=== PATIENT | female | born 1945 | race Caucasian/White ===

== ENCOUNTER 2018-06-13 08:03 | Day surgery (SDC) | payer MEDICARE ==
--- NOTE | 2018-06-12 21:34 | Pre-Procedure Note/Attestation ---
Pre-Procedure Note/Attestation Complete Prior to Procedure Planned Procedure: left - Removal of cataract and placement of intraocular lens , left eye Procedure Narrative: Removal of cataract and placement of intraocular lens, left eye Indications for Procedure Pre-Operative Diagnosis: Cataract, combined, left eye Attestation I attest that I discussed the nature of the procedure; its benefits; risks and complications; and alternatives (and the risks and benefits of such alternatives ), prior to the procedure, with the patient (or the patient's legal outbound sales representative). I attest that, if there was a reasonable possibility of needing a blood transfusion, the patient (or the patient's legal outbound sales representative) was given the [place] [employer] [facility] [employer] [facility] standardized written summary, pursuant to the [place] Blood Safety Act ([place] Health and Safety Code # 1645, as amended). I attest that I re-evaluated the patient just prior to the surgery and that there has been no change in the patient's H&P, except as documented below: Albert Francisco MD Jun 12, 2018 21:34
[~2018-06-13] VITALS: Ht 157.5 cm; Wt 61.2 kg
[2018-06-13] VITALS (8 sets, daily range): BP systolic 105–116; BP diastolic 56–72
[~2018-06-13 08:03] MED LIST: Pred Forte 1% Opth Susp 1ml LEFT EYE ONE; Pred Forte 1% Opth Susp 1ml LEFT EYE SCH
[2018-06-13] MEDS ORDERED: EPINEPHrine 1mg/1ml Amp ONE ×2 (08:32→08:35)
[2018-06-13] MEDS ORDERED: Lidocaine 4% Amp ONE (08:32)
[2018-06-13] MEDS ORDERED: Pred Forte 1% Opth Susp 1ml ONE (08:33)
[2018-06-13] MEDS ORDERED: Dexamethasone 4mg/ml vial ONE (08:33)
[2018-06-13] MEDS ORDERED: Carbachol 0.01% Op Soln 1.5ml vial ONE (08:33)
[2018-06-13] MEDS ORDERED: Fluorescein Strips ONE (08:33)
[2018-06-13] MEDS ORDERED: Maxitrol Opth Oint 3.5gm ONE (08:33)
[2018-06-13] MEDS ORDERED: Timolol 0.5% Op Soln 2.5ml ONE (08:33)
[2018-06-13] MEDS ORDERED: Acetylcholine Injection (OR) ONE (08:34)
[2018-06-13] MEDS ORDERED: BSS 500ml btl ONE (08:34)
[2018-06-13] MEDS ORDERED: Povidone-Iodine 5% opth solution ONE (08:34)
[2018-06-13] MEDS ORDERED: Bupivacaine 0.75% 30ml vial INJ ONE (08:34)
[2018-06-13] MEDS ORDERED: BSS 15ml BTL ONE (08:34)
[2018-06-13] MEDS ORDERED: Lidocaine 1% MPF 10mg/ml 5ml ONE (08:35)
[2018-06-13] MEDS: Cyclopentolate 1% Opth Sol 2ml LEFT EYE SCH ×3 (08:38→09:17)
[2018-06-13] MEDS: Phenylephrine 10% Opth Soln 5ml LEFT EYE SCH ×3 (08:38→09:17)
[2018-06-13] MEDS ORDERED: Sodium Hyaluronate 10 mg/ml 0.85ml ONE ×2 (08:39→11:21)
[2018-06-13] MEDS: Akten 3.5% 1ml Btl LEFT EYE SCH ×3 (08:39→09:17)
[2018-06-13] MEDS: Vigamox Opth Soln 3ml LEFT EYE SCH ×3 (08:39→09:17)
[2018-06-13] MEDS ORDERED: Tetracaine 0.5% Opth 4ml Soln ONE (08:39)
[2018-06-13] MEDS ORDERED: Tropicamide 1% Opth 15ml Soln ONE (09:00)
[2018-06-13] MEDS: Tropicamide 1% Opth 15ml Soln LEFT EYE SCH ×3 (09:01→09:17)
[2018-06-13] MEDS ORDERED: MORPHINE SULFAT30 M9 PO (09:09)
[2018-06-13] MEDS ORDERED: OXYCODONE IR15 MG ORAL (09:09)
[2018-06-13] MEDS ORDERED: fentaNYL 100 mcg/2 mL IV ONE (09:22)
[2018-06-13] MEDS ORDERED: Midazolam 2mg/2ml Inj ONE (09:22)
[2018-06-13] MEDS ORDERED: Propofol 200mg/20ml IV ONE (09:25)
[2018-06-13] MEDS ORDERED: LR 1000ml ONE (10:00)
[2018-06-13] MEDS ORDERED: NS Irrig 1000ml ONE (10:00)
[2018-06-13] MEDS ORDERED: Sterile Water Irrig 1000ml IRRIG ONE (10:00)
[2018-06-13] MEDS ORDERED: LR 1000ml 1,000 ML IVLG SCH (10:01)
--- NOTE | 2018-06-13 10:01 | Anethesia Preoperative Eval ---
Anesthesia Pre-op PMH/ROS General Date of Evaluation: Jun 13, 2018 Time of Evaluation: 09:57 Anesthesiologist: Rodrick ASA Score: ASA 2 Mallampati Score Class I : Soft palate, uvula, fauces, pillars visible Class II: Soft palate, uvula, fauces visible Class III: Soft palate, base of uvula visible Class IV: Only hard plate visible Mallampati Classification: Class II Surgeon: Nolan Diagnosis: L eye cataract Surgical Procedure: L eye cataract extraction Anesthesia History: none Social History: current smoker Family History: no anesthesia problems Allergies: Coded Allergies: No Known Allergies (Unverified , 06/12/18) Medications: see eMAR Past Medical History Cardiovascular: Denies: HTN, CAD, [place], valve dz, arrhythmia, other Pulmonary: Reports: asthma - mild; Denies: COPD, BREANN, other Gastrointestinal/Genitourinary: Reports: GERD; Denies: CRI, ESRD, other Neurologic/Psychiatric: Reports: depression/anxiety, other - chronic pain on significant dose of opioids ; Denies: dementia, CVA, TIA Endocrine: Reports: hypothyroidism; Denies: DM, steroids, other HEENT: Reports: cataract (L), cataract (R) Hematology/Immune: Denies: anemia, DVT, bleeding disorder, other Musculoskeletal/Integumentary: 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 Exam Physician Exam Last Vital Signs Date Time Temp Pulse Resp B/P (MAP) Pulse Ox O2 Delivery O2 Flow Rate FiO2 06/13/18 09:10 Room Air 06/13/18 09:02 98.8 69 18 110/70 (83) 95 98.8 Constitutional: NAD Neurologic: CN 2-12 intact Cardiovascular: RRR, no M/R/G Respiratory: CTA Gastrointestinal: S/NT/ND Airway Exam Mallampati Score: Class II MO: limited Neck: stiff ROM: limited Teeth: intact Dentures: no upper, no lower Anesthesia Pre-op A/P Labs see chart Studies Pre-op Studies: EKG - SR Risk Assessment & Plan Assessment: ASA 2 Plan: MAC Status Change Before Surgery: No Pre-Antibiotics Drug: none Yang Mensah MD Jun 13, 2018 10:01
[2018-06-13] MEDS ORDERED: fentaNYL 100 mcg/2 mL IV PRN (10:15)
--- NOTE | 2018-06-13 11:23 | Discharge Instructions ---
Discharge Instructions Discharge Instructions Follow Up Orders Keep shield on at all times except to place eye gtts Continue preop eye drops followup tomorrow in Dr Francisco's office at 10:00 Return to Work/School on: Jun 13, 2018 For Congestive Heart Failure Reminder Report to your physician any weight gain of 5 pounds or more in one week. Albert Francisco MD Jun 13, 2018 11:23
--- NOTE | 2018-06-13 11:26 | Brief Operative Note ---
Immediate Post Operative Note Operative Note Pre-op Diagnosis: Cataract, combined, left eye Procedure: phaco pc iol, OS Post-op Diagnosis: same as pre-op Surgeon: Jair Francisco MD MS Respiratory Therapy Assistant: none Anesthesiologist: Dr Mensah Anesthesia: local, MAC Specimen: none Complications: none Condition: stable Fluids: see chart Implant(s) used?: Yes - zcb00 17.0 Albert Francisco MD Jun 13, 2018 11:26
--- NOTE | 2018-06-13 11:28 | Immediate Post-Op Evaluation ---
Immediate Post-Op Evalulation Immediate Post-Op Evalulation Procedure: L eye cataract extraction with IOL Date of Evaluation: Jun 13, 2018 Time of Evaluation: 11:27 IV Fluids: 400 Blood Products: 116 Estimated Blood Loss: 68 Urinary Output: 76 Blood Pressure Systolic: 116 Blood Pressure Diastolic: 68 Pulse Rate: 72 Respiratory Rate: 22 O2 Sat by Pulse Oximetry: 96 Temperature (Fahrenheit): 97.6 Pain Score (1-10): 1 Nausea: No Vomiting: No Complications none Patient Status: awake, patent, none Hydration Status: adequate Yang Mensah MD Jun 13, 2018 11:28
--- NOTE | 2018-06-13 12:11 | 48 Hour Post Anesthesia Eval ---
Post Anesthesia Evaluation Procedure: L eye cataract extraction with IOL Date of Evaluation: Jun 13, 2018 Time of Evaluation: 12:10 Blood Pressure Systolic: 105 0: 57 Pulse Rate: 72 Respiratory Rate: 20 Temperature (Fahrenheit): 97.6 O2 Sat by Pulse Oximetry: 95 Airway: patent Nausea: No Vomiting: No Pain Intensity: 1 Hydration Status: adequate Cardiopulmonary Status: stable Mental Status/LOC: patient returned to baseline Follow-up Care/Observations: n/a Post-Anesthesia Complications: none Follow-up care needed: ready to discharge Yang Mensah MD Jun 13, 2018 12:11
--- NOTE | 2018-06-13 17:30 | Operative Note - Dictated ---
DATE OF OPERATION: 06/13/2018 SURGEON: Albert Francisco M.D. [employer]ERSON [employer] SURGEON: None. ANESTHESIOLOGIST: Yang Mensah M.D. ANESTHESIA: Monitored anesthesia care. PREOPERATIVE DIAGNOSIS: Cataract, combined, left eye. POSTOPERATIVE DIAGNOSIS: Cataract, combined, left eye. PROCEDURE: 1. Phacoemulsification of cataract, left eye. 2. Placement of posterior chamber intraocular lens, left eye, model ZCB00, power 17.0. SPECIMENS: None. COMPLICATIONS: None. INDICATIONS FOR SURGERY: The patient has had the painless progressive decrease in visual acuity in the left eye secondary to cataract. The patient understands the risks of surgery including infection, bleeding, need for further surgery, loss of vision, no improvement in vision, loss of the eye, glaucoma, retinal detachment, and loss of life, and the patient understands these risks and elects to proceed with surgery. FINDINGS: The patient had a +3 nuclear sclerotic cataract as well as +2 cortical cataract, which was directly centered as an anterior subcapsular cataract. OPERATIVE NOTE: After informed consent was obtained, the patient was brought into the operating room, placed in supine position. Cardiac and respiratory monitors were attached. A time-out was performed and all criteria were met and everyone in the room agreed. The left eye was draped and prepped in sterile manner for ocular surgery. A lid speculum was placed in the eye. A 1% lidocaine preservative-free was injected at the approximate 2 o'clock limbus. A conjunctiva peritomy from approximately 1:30 to 3 o'clock was made and dissected posteriorly. Hemostasis was maintained with bipolar cautery. A 2.4 mm limbal incision was made centered approximately 2 o'clock and dissected anteriorly. A paracentesis was made at approximately 4:30. Shugarcaine was injected into the anterior chamber followed by Healon. The anterior chamber was then entered using a 2.6 mm keratome through the limbal incision. An anterior capsulorrhexis was then performed. Hydrodissection and hydrodelineation of the lens was then performed. The lens was then phacoemulsified using divide and conquer four-quadrant technique. Residual cortical material was then aspirated. Healon was injected into the anterior chamber and capsular bag. The lens was taken from its package, placed into the cartridge and the tip of the cartridge was placed through the limbal incision and the lens was injected into the capsular bag and centered nicely with a Sinskey hook. Healon was then aspirated from the anterior chamber and capsular bag. One 10-0 nylon interrupted suture was then placed through the limbal incision, the knot was rotated and buried. All wounds were checked and found to be watertight. The lens was reinspected and both haptics and the optic were centered at the 3 o'clock to 9 o'clock axis with the haptic and both optics in the back. The conjunctiva was closed with forceps cautery. The lid speculum and drapes removed from the eye. One drop of diluted Betadine was placed in the nasal canthus and then irrigated. The drapes were also removed from the eye and drops of moxifloxacin and Pred Forte were applied to the eye followed by Maxitrol ointment and a shield. The patient tolerated the procedure well and left the operating room awake, alert in stable condition. Albert Francisco M.D. DR: ELEAZAR JOB#: [id number] CC:
== END 2018-06-13 12:50 | disposition home or self-care (01) ==
LOC: SUR 08:03
DX: H25.812 Combined forms of age-related cataract, left eye (principal); J45.909 Unspecified asthma, uncomplicated; K21.9 Gastro-esophageal reflux disease without esophagitis; F32.9 Major depressive disorder, single episode, unspecified; F41.9 Anxiety disorder, unspecified; E03.9 Hypothyroidism, unspecified; G89.29 Other chronic pain; M19.90 Unspecified osteoarthritis, unspecified site; F17.200 Nicotine dependence, unspecified, uncomplicated
CPT/HCPCS: 66984; J0171; J1100; J2250; J2704; J3010; J7120; V2632; 94003; 94150